=== PATIENT | female | born 1955 | race Caucasian/White ===

== ENCOUNTER 2018-08-17 20:12 | Inpatient (IN) | payer OTHER ==
[~2018-08-17] VITALS: Ht 165.1 cm; Wt 90.5 kg
[2018-08-17 21:00] VITALS: BP 140/67; PULSE 72; RESP 17
[2018-08-17] MEDS ORDERED: morphine 2 MG INJ IV PRN (22:30)
[2018-08-17] MEDS ORDERED: ONDANSETRON 4 MG INJ IV PRN (22:30)
[2018-08-17] MEDS ORDERED: ACETAMINOPHEN 325 MG TAB PO PRN (22:30)
[2018-08-17] MEDS: CEFTRIAXONE 1 GM/50 ML (PMX) 50 ML IVPB SCH (23:20)
[2018-08-17] MEDS: DEXTROSE 5%-0.9% NACL 1,000 ML IV SCH (23:20)
[2018-08-18 01:20] VITALS: Ht 165.1 cm; Wt 90.5 kg
[2018-08-18 02:45] VITALS: BP 138/62; PULSE 68; RESP 18
[2018-08-18] MEDS: PANTOPRAZOLE 40 MG INJ IV SCH (06:14)
[2018-08-18] MEDS ORDERED: HYDR12.58 PO (06:28)
[2018-08-18] MEDS ORDERED: LEVO100T8 PO (06:28)
[2018-08-18] MEDS ORDERED: ASPI-817 PO (06:28)
[2018-08-18] MEDS ORDERED: BENA40TA56 PO (06:28)
[2018-08-18 07:50] VITALS: BP 131/60; PULSE 78; RESP 19
--- NOTE | 2018-08-18 10:51 | HP ---
ROSA KAPADIA 08/18/18 1051: Date/Time of Note Date/Time of Note DATE: 08/18/18 TIME: 10:50 Assessment/Plan VTE Prophylaxis SCD applied (from Nsg): Yes Pharmacological prophylaxis: NA/contraindicated Pharm contraindication: surgical contra Lines/Catheters IV Catheter Type (from Nrs): Peripheral IV Assessment/Plan Hospital Course 1. Acute cholecystitis vs choledocholithiasis. Common bile duct dilatation 8.3 mm. Normal Lipase, ALT, AST 2. Normocytic hypochromic anemia 3. Hypothyroidism 4. Hypertension, currently normotensive 5. obesity Assessment/Plan -DVT proph. SCD, possible procedure in future -GI proph. Protonix -c/w IV fluids -c/w A/B -Dr Mckinney GI consult -NPO -c.w thyroid suppl. -C/W IV fluids -MRCP stat Result Diagram: 08/18/18 0423 08/18/18 0423 Results 24hrs Laboratory Tests Test 08/18/18 04:23 White Blood Count 7.9 Red Blood Count 3.86 L Hemoglobin 11.0 L Hematocrit 34.7 L Mean Corpuscular Volume 89.9 Mean Corpuscular Hemoglobin 28.5 L Mean Corpuscular Hemoglobin Concent 31.7 L Red Cell Distribution Width 14.0 Platelet Count 323 Mean Platelet Volume 10.0 Immature Granulocytes % 0.300 Neutrophils % 59.0 Lymphocytes % 30.5 Monocytes % 8.6 Eosinophils % 1.1 Basophils % 0.5 Nucleated Red Blood Cells % 0.0 Immature Granulocytes # 0.020 Neutrophils # 4.7 Lymphocytes # 2.4 Monocytes # 0.7 Eosinophils # 0.1 Basophils # 0.0 Nucleated Red Blood Cells # 0.0 Sodium Level 144 Potassium Level 3.6 Chloride Level 109 Carbon Dioxide Level 27 Anion Gap 8 Blood Urea Nitrogen 16 Creatinine 0.90 Est Glomerular Filtrat Rate mL/min > 60 Glucose Level 108 Calcium Level 9.3 Total Bilirubin 0.9 Direct Bilirubin 0.00 Indirect Bilirubin 0.9 Aspartate Amino Transf (AST/SGOT) 27 Alanine Aminotransferase (ALT/SGPT) 21 Alkaline Phosphatase 83 Total Protein 7.3 Albumin 3.8 Globulin 3.50 H Albumin/Globulin Ratio 1.08 HPI/ROS Admit Date/Time Admit Date/Time Aug 17, 2018 at 20:26 Hx of Present Illness This 63 years old female with medical history of obesity, hypothyroidi sm, and hypertension was transferred from [facility] yesterday with complaints of abdominal pain, that started 3 days prior. [facility] she had nausea. Denied previous abdominal pain in the past. Signs and [facility] emergency room was temperature 36.7 pulse 79 respirations 16 blood pressure 182/78 saturation 99%. Back pain. She exhibited positive Gutiérrez sign in the hospital and her ultrasound of abdomen was positive for cholelithiasis, mild dilatation of the common bile duct measuring 8.3 mm, hepatic steatosis. UA was normal small amount of leukocytes and trace of blood. Patient is negative for , WBC 10.3 RBC 4.3 hemoglobin 12.5 hematocrit 37 platelets 375 lipase is a 33, BMP showed sodium 142 potassium 4.1 chloride 103 CO2 26 glucose 135 BUN 19 creatinine 1.01 GFR 55 alkaline phosphatase 107 ALT 22 AST 16. Shunt was transferred to [facility] due to insurance purposes Indications taking at home are aspirin 81 mg p.o. daily, benazepril 40 mg p.o. daily hydrochlorothiazide 12.5 mg p.o. daily levothyroxine 100 mcg p.o. daily PMH/Family/Social Past Medical History Medical History: hypertension, hyperthyroid Medications Current Medications Dextrose/Sodium Chloride 1,000 ml @ 75 mls/hr [id number] IV Last administered on 08/17/18at 23:20; Admin Dose 75 MLS/HR; Start 08/17/18 at 22:30 Pantoprazole (Protonix Iv) 40 mg DAILY@06 IV Last administered on 08/18/18at 06:14; Admin Dose 40 MG; Start 08/18/18 at 06:00 Acetaminophen (Tylenol Tab) 650 mg Q6H PRN PO MILD PAIN(1-3)OR ELEVATED TEMP; Start 08/17/18 at 22:30 Ceftriaxone Sodium 50 ml @ 100 mls/hr Q24H IVPB Last administered on 08/17/18at 23:20; Admin Dose 100 MLS/HR; Start 08/17/18 at 22:30 Morphine Sulfate (morphine) 2 mg Q6 PRN IV SEVERE PAIN LEVEL 7-10; Start 08/17/18 at 22:30 Ondansetron HCl (Zofran Inj) 4 mg Q6H PRN IV NAUSEA AND/OR VOMITING; Start 08/17/18 at 22:30 Coded Allergies: No Known Allergy (Unverified , 08/17/18) Past Surgical History Past Surgical Hx: other (tubal ligation) Social History Alcohol Use: none Smoking Status: Never smoker Drug Use: none Exam/Review of Systems Vital Signs Vitals Vital Signs Date Temp Pulse Resp B/P (MAP) Pulse Ox O2 O2 Flow FiO2 Time Delivery Rate 08/18/18 98.4 78 19 131/60 99 07:50 (83) 08/18/18 Room Air 02:45 Intake and Output 08/17/18 08/17/18 08/18/18 1515:00 23:00 07:00 IntakeIntake Total 450 ml BalanceBalance 450 ml Exam Constitutional: alert, oriented Respiratory: clear to auscultation Cardiovascular: regular rate and rhythm Gastrointestinal: soft, other (pos. kMerphy sign) Genitourinary - Female: CVA tenderness; No nl adnexae, No nl external genitalia, No CMT, No uterus, No other Neurological: JACQUARD LOOM HEDDLES TIER II-XII intact NANDO LOWERY MD 08/18/18 1504: Assessment/Plan Assessment/Plan Assessment/Plan pt was seen and examined npo, iv fluids MRCP GI consult and surgery Result Diagram: 08/18/18 0423 08/18/18 0423 PMH/Family/Social Past Medical History Coded Allergies: No Known Allergy (Unverified , 08/17/18) ROSA KAPADIA Aug 18, 2018 10:51 NANDO LOWERY MD Aug 18, 2018 15:04
[2018-08-18] MEDS: DEXTROSE 5%-0.9% NACL 1,000 ML IV SCH (11:42)
[2018-08-18 14:41] VITALS: BP 128/58; PULSE 82; RESP 19
--- NOTE | 2018-08-18 14:49 | CONS ---
DATE OF ADMISSION: 08/17/2018 DATE OF CONSULTATION: TYPE OF CONSULTATION: Gastroenterology. HISTORY OF PRESENT ILLNESS: A 63-year-old female was originally at [facility] Room for abdominal pain confined to the right upper quadrant radiating to the back, associate d with nausea and vomiting. The patient was worked up in the emergency room. She had ultrasound of the abdomen done which showed gallstone and dilated bile duct up to 8.3 mm. CBC was normal. LFT rev ealed mild elevation of alkaline phosphatase and the patient was subsequently transferred to this [facility] for the insurance purpose. The patient continues to have abdominal pain in the right upper shahrzad drant and she is nauseous, but no vomiting, no fever, no chills. In the emergency room, she was give n Zosyn and pain killer. PAST MEDICAL HISTORY: Hypertension, hypothyroidism. ALLERGIES: NONE. PAST SURGICAL HISTORY: None. SOCIAL HISTORY: Does not smoke or drink. PHYSICAL EXAMINATION VITALS: Stable. HEENT: Unremarkable. NECK: Supple. No thyromegaly, no lymphadenopathy. CARDIOVASCULAR: No murmur, gallop or click. LUNGS: Clear. ABDOMEN: Soft. She has tenderness in the right upper quadrant which is moderate. EXTREMITIES: No edema. CENTRAL NERVOUS SYSTEM: Grossly within normal limits. LABORATORY DATA: WBC is 10.3, platelet count is normal. IMPRESSION: 1. Right upper quadrant pain, most probably related to biliary colicky, rule out acute cholecystitis , rule out bile duct stone in view of dilated bile duct and elevated alkaline phosphatase. 2. Hypertension. 3. Hypothyroidism. 4. Obesity. PLAN: 1. At this point is to continue IV antibiotic, pain killer, morphine or Dilaudid. 2. We need emergency MRCP. If MRCP shows bile duct stone, then we will proceed with ERCP in a.m. Thank you, once again, for the referral. Dictated By: DONY JHAVERI/SIMONA Conf#: [id number] DID#: [id number] CC: DAISY PRATT MD; NANDO LOWERY;*EndCC*
[2018-08-18] MEDS: CEFTRIAXONE 1 GM/50 ML (PMX) 50 ML IVPB SCH ×2 (22:30→23:00)
[2018-08-19] MEDS: DEXTROSE 5%-0.9% NACL 1,000 ML IV SCH ×2 (01:10→06:10)
[2018-08-19 02:12] VITALS: BP 140/63; PULSE 62; RESP 18
[2018-08-19] MEDS: PANTOPRAZOLE 40 MG INJ IV SCH (06:46)
[2018-08-19] MEDS ORDERED: LEVOTHYROXINE 100 MCG TAB PO SCH (07:00)
[2018-08-19 07:30] VITALS: BP 143/62; PULSE 64; RESP 18
--- NOTE | 2018-08-19 12:48 | PN ---
Date/Time of Note Date/Time of Note DATE: 08/19/18 TIME: 12:45 Assessment/Plan VTE Prophylaxis Risk score (from [facility])>0 risk: 3 SCD applied (from [facility]): Yes SCD contraindicated: low risk/ambulating Pharmacological prophylaxis: NA/contraindicated Pharm contraindication: surgical contra Lines/Catheters IV Catheter Type (from [facility]): Peripheral IV Assessment/Plan Hospital Course 1. Cholelithiasis. prior ds include possible acute cholecystitis vs choledocholithiasis vs cholelithiasis. Common bile duct dilatation 8.3 mm. Normal Lipase, ALT, AST. MRCP showed : Unremarkable MRI abdomen. Cholelithiasis without acute cholecystitis. No choledocholithiasis or biliary dilatation. 2. Normocytic hypochromic anemia 3. Hypothyroidism 4. Hypertension, currently normotensive 5. Obesity Assessment/Plan -DVT proph. SCD, possible procedure in future. Ambulate -GI proph. Protonix -c/w IV fluids -iron profile -low fat diet -c/w A/B -Dr Mckinney GI consult -c.w thyroid suppl. -C/W IV fluids -MRCP reviewed, no intervention needed -pt need a surgical consult for cholecystectomy outpatient Result Diagram: 08/19/18 0440 08/19/18 0440 Results 24hrs Laboratory Tests Test 08/19/18 04:40 White Blood Count 7.6 Red Blood Count 3.94 L Hemoglobin 11.2 L Hematocrit 35.5 L Mean Corpuscular Volume 90.1 Mean Corpuscular Hemoglobin 28.4 L Mean Corpuscular Hemoglobin Concent 31.5 L Red Cell Distribution Width 13.8 Platelet Count 314 Mean Platelet Volume 10.2 Immature Granulocytes % 0.300 Neutrophils % 62.2 Lymphocytes % 28.5 Monocytes % 7.5 Eosinophils % 1.1 Basophils % 0.4 Nucleated Red Blood Cells % 0.0 Immature Granulocytes # 0.020 Neutrophils # 4.7 Lymphocytes # 2.2 Monocytes # 0.6 Eosinophils # 0.1 Basophils # 0.0 Nucleated Red Blood Cells # 0.0 Sodium Level 143 Potassium Level 3.6 Chloride Level 109 Carbon Dioxide Level 26 Anion Gap 8 Blood Urea Nitrogen 15 Creatinine 0.81 Est Glomerular Filtrat Rate mL/min > 60 Glucose Level 106 Hemoglobin A1c 5.6 Calcium Level 9.2 Total Bilirubin 1.1 Direct Bilirubin 0.00 Indirect Bilirubin 1.1 Aspartate Amino Transf (AST/SGOT) 31 Alanine Aminotransferase (ALT/SGPT) 23 Alkaline Phosphatase 81 Total Protein 7.1 Albumin 3.7 Globulin 3.40 H Albumin/Globulin Ratio 1.08 Subjective 24 Hr Interval Summary Gastrointestinal: no complaints Musculoskeletal: no complaints Exam/Review of Systems Exam Vitals Vital Signs Date Temp Pulse Resp B/P (MAP) Pulse Ox O2 O2 Flow FiO2 Time Delivery Rate 08/19/18 98.5 64 18 143/62 100 07:30 (89) 08/18/18 Room Air 02:45 Intake and Output 08/18/18 08/18/18 08/19/18 1515:00 23:00 07:00 IntakeIntake Total 600 ml 450 ml BalanceBalance 600 ml 450 ml Constitutional: alert, oriented Respiratory: clear to auscultation Cardiovascular: regular rate and rhythm Gastrointestinal: soft, rebound or guarding; No nl liver, spleen, No non-tender, No ascites, No bowel sounds, No distended, No firm, No hepatomegaly, No mass, No splenomegaly, No surgical scars, No tender, No other Results Results 24hrs Laboratory Tests Test 08/19/18 04:40 White Blood Count 7.6 Red Blood Count 3.94 L Hemoglobin 11.2 L Hematocrit 35.5 L Mean Corpuscular Volume 90.1 Mean Corpuscular Hemoglobin 28.4 L Mean Corpuscular Hemoglobin Concent 31.5 L Red Cell Distribution Width 13.8 Platelet Count 314 Mean Platelet Volume 10.2 Immature Granulocytes % 0.300 Neutrophils % 62.2 Lymphocytes % 28.5 Monocytes % 7.5 Eosinophils % 1.1 Basophils % 0.4 Nucleated Red Blood Cells % 0.0 Immature Granulocytes # 0.020 Neutrophils # 4.7 Lymphocytes # 2.2 Monocytes # 0.6 Eosinophils # 0.1 Basophils # 0.0 Nucleated Red Blood Cells # 0.0 Sodium Level 143 Potassium Level 3.6 Chloride Level 109 Carbon Dioxide Level 26 Anion Gap 8 Blood Urea Nitrogen 15 Creatinine 0.81 Est Glomerular Filtrat Rate mL/min > 60 Glucose Level 106 Hemoglobin A1c 5.6 Calcium Level 9.2 Total Bilirubin 1.1 Direct Bilirubin 0.00 Indirect Bilirubin 1.1 Aspartate Amino Transf (AST/SGOT) 31 Alanine Aminotransferase (ALT/SGPT) 23 Alkaline Phosphatase 81 Total Protein 7.1 Albumin 3.7 Globulin 3.40 H Albumin/Globulin Ratio 1.08 Medications Medication Current Medications Dextrose/Sodium Chloride 1,000 ml @ 75 mls/hr [id number] IV Last administered on 08/19/18at 06:10; Admin Dose 75 MLS/HR; Start 08/17/18 at 22:30 Pantoprazole (Protonix Iv) 40 mg DAILY@06 IV Last administered on 08/19/18at 06:46; Admin Dose 40 MG; Start 08/18/18 at 06:00 Acetaminophen (Tylenol Tab) 650 mg Q6H PRN PO MILD PAIN(1-3)OR ELEVATED TEMP; Start 08/17/18 at 22:30 Ceftriaxone Sodium 50 ml @ 100 mls/hr Q24H IVPB Last administered on 08/18/18at 23:00; Admin Dose 100 MLS/HR; Start 08/17/18 at 22:30 Morphine Sulfate (morphine) 2 mg Q6 PRN IV SEVERE PAIN LEVEL 7-10; Start 08/17/18 at 22:30 Ondansetron HCl (Zofran Inj) 4 mg Q6H PRN IV NAUSEA AND/OR VOMITING; Start 08/17/18 at 22:30 Levothyroxine Sodium (Synthroid) 100 mcg BEFORE BREAKFAST PO Last administered on 08/19/18at 06:46; Admin Dose 100 MCG; Start 08/19/18 at 07:00 ROSA KAPADIA Aug 19, 2018 12:48
--- NOTE | 2018-08-19 14:09 | PDOCDIS ---
Discharge Instructions DIAGNOSIS Discharge Diagnosis bile colic CONDITION [id number] Patient Condition: [id number] Stable HOME CARE INSTRUCTIONS: [id number] Diet Instructions: Whlie5s Low Fat /Cholesterol ACTIVITY: [id number] Activity Restrictions: [id number] Slowly Increase Activity Rest between Activity Avoid heavy lifting FOLLOW UP/APPOINTMENTS Follow-up Plan -PCP 1 week -need surgical consult for cholecystectomy with recurrent biliary colic ROSA KAPADIA Aug 19, 2018 14:09
--- NOTE | 2018-08-19 14:11 | DS ---
Date/Time of Note Date/Time of Note DATE: 08/19/18 TIME: 14:11 Discharge Summary Admission/Discharge Info Admit Date/Time Aug 17, 2018 at 20:26 Discharge Date/Time Discharge Diagnosis biliary colic Patient Condition: Stable Consults Dr Mckinney, GI Procedures MRCP Hx of Present Illness This 63 years old female with medical history of obesity, hypothyroidism, and hypertension was transferred from [facility] yesterday with complaints of abdominal pain, that started 3 days prior. [facility] she had nausea. Denied previous abdominal pain in the past. Signs and [facility] emergency room was temperature 36.7 pulse 79 respirations 16 blood pressure 182/78 saturation 99%. Back pain. She exhibited positive Gutiérrez sign in the hospital and her ultrasound of abdomen was positive for cholelithiasis, mild dilatation of the common bile duct measuring 8.3 mm, hepatic steatosis. UA was normal small amount of leukocytes and trace of blood. Patient is negative for , WBC 10.3 RBC 4.3 hemoglobin 12.5 hematocrit 37 platelets 375 lipase is a 33, BMP showed sodium 142 potassium 4.1 chloride 103 CO2 26 glucose 135 BUN 19 creatinine 1.01 GFR 55 alkaline phosphatase 107 ALT 22 AST 16. Shunt was transferred to [facility] due to insurance purposes Indications taking at home are aspirin 81 mg p.o. daily, benazepril 40 mg p.o. daily hydrochlorothiazide 12.5 mg p.o. daily levothyroxine 100 mcg p.o. daily Hospital Course This 63 years old female with medical history of obesity, hypothyroidism, and hypertension was transferred from [facility] yesterday with complaints of abdominal pain, that started 3 days prior. [facility] she had nausea. Denied previous abdominal pain in the past. Signs and [facility] emergency room was temperature 36.7 pulse 79 respirations 16 blood pressure 182/78 saturation 99%. Back pain. She exhibited positive Gutiérrez sign in the hospital and her ultrasound of abdomen was positive for cholelithiasis, mild dilatation of the common bile duct measuring 8.3 mm, hepatic steatosis. UA was normal small amount of leukocytes and trace o f blood. Patient is negative for , WBC 10.3 RBC 4.3 hemoglobin 12.5 hematocrit 37 platelets 375 lipase is a 33, BMP showed sodium 142 potassium 4.1 chloride 103 CO2 26 glucose 135 BUN 19 creatinine 1.01 GFR 55 alkaline phosphatase 107 ALT 22 AST 16. She was transferred to [facility] due to insurance purposes Indications taking at home are aspirin 81 mg p.o. daily, benazepril 40 mg p.o. daily hydrochlorothiazide 12.5 mg p.o. daily levothyroxine 100 mcg p.o. daily Impressions: 1. Cholelithiasis. prior ds include possible acute cholecystitis vs choledocholithiasis vs cholelithiasis. Common bile duct dilatation 8.3 mm. Normal Lipase, ALT, AST. MRCP showed : Unremarkable MRI abdomen. Cholelithiasis without acute cholecystitis. No choledocholithiasis or biliary dilatation. 2. Normocytic hypochromic anemia 3. Hypothyroidism 4. Hypertension, currently normotensive 5. Obesity During hospitalization pt was NPO and she had an IV fluids. Pain medication was given. Pt was on iv a/b. MRCP is negative, exhibit gallbladder large stone. Dr Mckinney recommended low fat diet and see outpatient surgery. Surgical referral was asked to do per case management. Pt reported clinical improvement and no pain. Pt is ambulated and tolerated low fat diet. Home Meds Reported Medications Hydrochlorothiazide* (Hydrochlorothiazide*) 12.5 Mg Tablet, 12.5 MG PO DAILY, #30 TAB 08/18/18 Levothyroxine Sodium* (Levothyroxine Sodium*) 100 Mcg Tablet, 100 MCG PO BEFORE BREAKFAST, #30 TAB 08/18/18 Benazepril Hcl* (Benazepril Hcl*) 40 Mg Tablet, 40 MG PO DAILY, #30 TAB 08/18/18 Aspirin* (Aspirin* EC) 81 Mg Tablet., 81 MG PO DAILY, TAB 08/18/18 Follow-up Plan -PCP 1 week -need surgical consult for cholecystectomy with recurrent biliary colic Primary Care Provider Chris Li Time spent on discharge: < 30 minutes Pending Labs Laboratory Tests Test 08/19/18 04:40 White Blood Count 7.6 10^3/ul (4.8-10.8) Red Blood Count 3.94 10^6/ul (4.20-5.40) Hemoglobin 11.2 g/dl (12.0-16.0) Hematocrit 35.5 % (37.0-47.0) Mean Corpuscular Volume 90.1 fl (82.0-101.0) Mean Corpuscular Hemoglobin 28.4 pg (29.0-33.0) Mean Corpuscular Hemoglobin Concent 31.5 g/dl (32.0-37.0) Red Cell Distribution Width 13.8 % (11.5-14.5) Platelet Count 314 10^3/UL (140-415) Mean Platelet Volume 10.2 fl (7.4-10.4) Immature Granulocytes % 0.300 % (0.001-0.429) Neutrophils % 62.2 % (39.0-77.0) Lymphocytes % 28.5 % (15.0-51.0) Monocytes % 7.5 % (0.0-11.0) Eosinophils % 1.1 % (0.0-7.0) Basophils % 0.4 % (0.0-2.0) Nucleated Red Blood Cells % 0.0 /100WBC (0.0-0.0) Immature Granulocytes # 0.020 10^3/ul (0.0-0.031) Neutrophils # 4.7 10^3/ul (1.6-7.5) Lymphocytes # 2.2 10^3/ul (0.8-2.9) Monocytes # 0.6 10^3/ul (0.3-0.9) Eosinophils # 0.1 10^3/ul (0.0-0.5) Basophils # 0.0 10^3/ul (0.0-0.1) Nucleated Red Blood Cells # 0.0 10^3/ul (0.0-0.0) Sodium Level 143 mmol/L (135-144) Potassium Level 3.6 mmol/L (3.5-5.1) Chloride Level 109 mmol/L (97-110) Carbon Dioxide Level 26 mmol/L (21-31) Anion Gap 8 (5-13) Blood Urea Nitrogen 15 mg/dl (7-20) Creatinine 0.81 mg/dl (0.44-1.00) Est Glomerular Filtrat Rate mL/min > 60 mL/min (>60) Glucose Level 106 mg/dl (70-220) Hemoglobin A1c 5.6 % (0-5.9) Calcium Level 9.2 mg/dl (8.4-10.2) Total Bilirubin 1.1 mg/dl (0.2-1.3) Direct Bilirubin 0.00 mg/dl (0.00-0.20) Indirect Bilirubin 1.1 mg/dl (0-1.1) Aspartate Amino Transf (AST/SGOT) 31 IU/L (15-46) Alanine Aminotransferase (ALT/SGPT) 23 IU/L (13-69) Alkaline Phosphatase 81 IU/L (42-121) Total Protein 7.1 g/dl (6.1-8.1) Albumin 3.7 g/dl (3.3-4.9) Globulin 3.40 g/dl (1.3-3.2) Albumin/Globulin Ratio 1.08 ROSA KAPADIA Aug 19, 2018 14:11
--- NOTE | 2018-08-19 14:14 | CONS ---
Assessment/Plan Assessment/Plan Assessment/Plan (Daily) LABORATORY DATA: WBC is 10.3, platelet count is normal. IMPRESSION: 1. Right upper quadrant pain, most probably related to biliary colicky, rule out acute cholecystitis, rule out bile duct stone in view of dilated bile duct and elevated alkaline phosphatase. 2. Hypertension. 3. Hypothyroidism. 4. Obesity. PLAN: 1. At this point is to continue IV antibiotic, pain killer, morphine or Dilau did. 2. We need emergency MRCP. MRCP was negative for the stone and cholecystitis. 3. Low-fat diet and patient can be discharged and followed as an outpatient Consultation Date/Type/Reason Admit Date/Time Aug 17, 2018 at 20:26 Initial Consult Date Date/Time of Note DATE: 08/19/18 TIME: 14:13 24 HR Interval Summary Free Text/Dictation Sinus absolute no abdominal pain no nausea no vomiting Constitutional: no complaints, improved Exam/Review of Systems Exam Vitals Vital Signs Date Temp Pulse Resp B/P (MAP) Pulse Ox O2 O2 Flow FiO2 Time Delivery Rate 08/19/18 98.5 64 18 143/62 100 07:30 (89) 08/18/18 Room Air 02:45 Intake and Output 08/18/18 08/18/18 08/19/18 1515:00 23:00 07:00 IntakeIntake Total 600 ml 450 ml BalanceBalance 600 ml 450 ml Constitutional: alert, oriented, well developed Psych: no complaints, nl mood/affect Head: normocephalic, atraumatic Eyes: nl conjunctiva, EOMI, nl lids, nl sclera, PERRL ENMT: nl external ears & nose, nl lips & teeth, nl nasal mucosa & septum Neck: supple, non-tender Respiratory: clear to auscultation, normal air movement Cardiovascular: regular rate and rhythm, nl pulses Gastrointestinal: soft, nl liver, spleen, non-tender Musculoskeletal: nl extremities to inspection, nl gait and stance Extremities: normal pulses Neurological: MISSILE FACILITIES REPAIRER II-XII intact, nl mental status, nl speech, nl strength Skin: nl turgor; No rash or lesions Lymph: nl lymph nodes Results Result Diagram: 08/19/18 0440 08/19/18 0440 Results 24hrs Laboratory Tests Test 08/19/18 04:40 White Blood Count 7.6 Red Blood Count 3.94 L Hemoglobin 11.2 L Hematocrit 35.5 L Mean Corpuscular Volume 90.1 Mean Corpuscular Hemoglobin 28.4 L Mean Corpuscular Hemoglobin Concent 31.5 L Red Cell Distribution Width 13.8 Platelet Count 314 Mean Platelet Volume 10.2 Immature Granulocytes % 0.300 Neutrophils % 62.2 Lymphocytes % 28.5 Monocytes % 7.5 Eosinophils % 1.1 Basophils % 0.4 Nucleated Red Blood Cells % 0.0 Immature Granulocytes # 0.020 Neutrophils # 4.7 Lymphocytes # 2.2 Monocytes # 0.6 Eosinophils # 0.1 Basophils # 0.0 Nucleated Red Blood Cells # 0.0 Sodium Level 143 Potassium Level 3.6 Chloride Level 109 Carbon Dioxide Level 26 Anion Gap 8 Blood Urea Nitrogen 15 Creatinine 0.81 Est Glomerular Filtrat Rate mL/min > 60 Glucose Level 106 Hemoglobin A1c 5.6 Calcium Level 9.2 Total Bilirubin 1.1 Direct Bilirubin 0.00 Indirect Bilirubin 1.1 Aspartate Amino Transf (AST/SGOT) 31 Alanine Aminotransferase (ALT/SGPT) 23 Alkaline Phosphatase 81 Total Protein 7.1 Albumin 3.7 Globulin 3.40 H Albumin/Globulin Ratio 1.08 Medications Medication Current Medications Dextrose/Sodium Chloride 1,000 ml @ 75 mls/hr [id number] IV Last administered on 08/19/18at 06:10; Admin Dose 75 MLS/HR; Start 08/17/18 at 22:30 Pantoprazole (Protonix Iv) 40 mg DAILY@06 IV Last administered on 08/19/18at 06:46; Admin Dose 40 MG; Start 08/18/18 at 06:00 Acetaminophen (Tylenol Tab) 650 mg Q6H PRN PO MILD PAIN(1-3)OR ELEVATED TEMP; Start 08/17/18 at 22:30 Ceftriaxone Sodium 50 ml @ 100 mls/hr Q24H IVPB Last administered on 08/18/18at 23:00; Admin Dose 100 MLS/HR; Start 08/17/18 at 22:30 Morphine Sulfate (morphine) 2 mg Q6 PRN IV SEVERE PAIN LEVEL 7-10; Start 08/17/18 at 22:30 Ondansetron HCl (Zofran Inj) 4 mg Q6H PRN IV NAUSEA AND/OR VOMITING; Start 08/17/18 at 22:30 Levothyroxine Sodium (Synthroid) 100 mcg BEFORE BREAKFAST PO Last administered on 08/19/18at 06:46; Admin Dose 100 MCG; Start 08/19/18 at 07:00 DONY BURROWS MD Aug 19, 2018 14:14
[2018-08-19 15:20] VITALS: BP 112/63; PULSE 107; RESP 18
[2018-08-20] MEDS ORDERED: PANTOPRAZOLE (EC) 40 MG TAB PO SCH (06:00)
== END 2018-08-19 20:12 | disposition home or self-care (01) | DRG 446 ==
LOC: MS1 20:26
PROVIDERS: ADMIT Internal Medicine; ATTEND Internal Medicine
DX: K80.20 Calculus of gallbladder without cholecystitis without obstruction (principal); K83.8 Other specified diseases of biliary tract; I10 Essential (primary) hypertension; E66.9 Obesity, unspecified; D64.9 Anemia, unspecified; K76.0 Fatty (change of) liver, not elsewhere classified; E03.9 Hypothyroidism, unspecified; Z98.51 Tubal ligation status; Z68.33 Body mass index [BMI] 33.0-33.9, adult
CPT/HCPCS: 74181; 80053; 83036; 85025; 85610; C9113; J0696; J7042

== ENCOUNTER 2018-11-01 10:35 | Day surgery (SDC) | payer OTHER ==
[2018-11-01] VITALS (14 sets, daily range): BP systolic 133–153; BP diastolic 64–104; PULSE 74–102; RESP 16–34; Ht 154.9 cm; Wt 86.7 kg
[~2018-11-01] VITALS: Ht 154.9 cm; Wt 86.7 kg
[~2018-11-01 10:35] MED LIST: ASPI-817 PO; BENA40TA56 PO; CEFAZOLIN 2 GM/50 ML (PMX) 50 ML IVPB SCH; ERGO2000 PO; HYDR12.58 PO; LEVO100T8 PO; SOD CHLORIDE 0.9% 1,000 ML IV ONE
[2018-11-01] MEDS ORDERED: HYDROmorphONE 1 MG/5 ML IV SYRINGE IV PRN ×3 (15:30)
[2018-11-01] MEDS ORDERED: LABETALOL HCL 20MG INJ IV PRN (15:30)
[2018-11-01] MEDS ORDERED: ONDANSETRON 4 MG INJ IV PRN ×2 (15:30→17:00)
[2018-11-01] MEDS ORDERED: MEPERIDINE 25 MG INJ IV PRN (15:30)
[2018-11-01] MEDS ORDERED: hydrALAzine 20 MG INJ IV PRN (15:30)
[2018-11-01] MEDS ORDERED: OXYCODONE/ACETAMINOPHEN (5/325) TAB PO PRN ×2 (15:30)
[2018-11-01] MEDS ORDERED: DIPHENHYDRAMINE 50 MG INJ IV PRN (15:30)
[2018-11-01] MEDS ORDERED: FENTAnyl 50 MCG/ML VIAL IV PRN ×3 (15:30)
[2018-11-01] MEDS ORDERED: BUPIVACAINE 0.25% (MPF) 30 ML INJ ONE (15:36)
[2018-11-01] MEDS ORDERED: ROPIVACAINE 0.5 % 30 ML VIAL ONE (15:46)
[2018-11-01] MEDS ORDERED: ONDANSETRON 4 MG INJ ONE (15:46)
[2018-11-01] MEDS ORDERED: ROCURONIUM 50 MG INJ ONE (15:46)
[2018-11-01] MEDS ORDERED: METOCLOPRAMIDE 10 MG INJ ONE (15:46)
[2018-11-01] MEDS ORDERED: PROPOFOL 20 ML ONE (15:46)
[2018-11-01] MEDS ORDERED: CEFAZOLIN 1 GM INJ ONE (16:19)
[2018-11-01] MEDS ORDERED: HYDROmorphONE 2 MG/ML SYG ONE (16:19)
[2018-11-01] MEDS ORDERED: GLYCOPYRROLATE 0.4 MG INJ ONE (16:19)
[2018-11-01] MEDS ORDERED: NEOSTIGMINE 3 MG/3 ML SYRINGE ONE (16:19)
[2018-11-01] MEDS ORDERED: IBUPROFEN 600 MG TAB PO PRN (17:00)
[2018-11-01] MEDS ORDERED: KETOROLAC 30 MG INJ IV PRN (17:00)
[2018-11-01] MEDS ORDERED: HYDROCODONE/APAP (5/325) TAB PO PRN ×2 (17:00)
[2018-11-01] MEDS ORDERED: morphine 2 MG INJ IV PRN (17:00)
[2018-11-01] MEDS ORDERED: DEXAMETHASONE 4 MG/ML 1 ML INJ ONE (17:38)
[2018-11-01] MEDS ORDERED: ALBUTEROL/IPRATROPIUM (NEB) 3 ML AMP HHN STA (17:41)
[2018-11-01] MEDS ORDERED: ALBUTEROL 0.083% (NEB) 2.5 MG/3 ML AMP ONE (17:46)
[2018-11-01] MEDS ORDERED: DEXAMETHASONE 10 MG/ML 1 ML INJ IV ONE (18:00)
== END 2018-11-01 19:45 | disposition home or self-care (01) ==
LOC: SDS 10:35
PROVIDERS: ATTEND Surgery
DX: K80.10 Calculus of gallbladder with chronic cholecystitis without obstruction (principal); I10 Essential (primary) hypertension; E03.9 Hypothyroidism, unspecified
CPT/HCPCS: 47562; 88304; 94664; J0690; J1100; J1170; J2405; J2710; J2765; J2795; Z7512; Z7610